=== PATIENT | female | born 1960 | race Caucasian/White ===

== ENCOUNTER 2019-06-26 11:02 | Outpatient (RCR) | payer OTHER, SELFPAY ==
--- NOTE | 2019-06-26 12:13 | PTOPEVAL ---
PHYSICAL THERAPY EVALUATION NOTE Thank you for referring Aicha to [facility]. She was seen this date for positional vertigo. + R Kelsie Halpike was found with testing and corrective R Eply manuever was performed. I will follow up via phone call on 07/01/2019 to see how she is doing. If dizziness has not returned, will d/c her from PT. If the dizziness has returned, will have her continue with skilled PT and formulate a plan of care which I will send to you for review. I agree with and certify that the information above. Referring Physician Date Admitting Provider: Attending Provider: Loki Roach, Referring Provider: *PT Outpatient Evaluation Start: 06/26/19 11:17 Freq: Status: Active Protocol: Document 06/26/19 11:17 GARCÍA (Rec: 06/26/19 12:12 GARCÍA [id number]) Therapy Assessment Status Assessment Status Assessment Status Evaluation Outpatient Past Medical History Neurological History Hx Neurological Disorders No Significant History Cardiovascular History Hx Cardiac Disorders No Significant History Respiratory History Hx Respiratory Disorders No Significant History Gastrointestinal History Hx Gastroesophageal Reflux Disease Yes Genitourinary History Hx Genitourinary Disorders No Significant History Musculoskeletal History Hx Musculoskeletal Disorders No Significant History Endocrine History Hx Endocrine Disorders No Significant History HEENT History Hx Eye Surgery Yes: R eye has lens implanted - 20/50 vision mid May 2019 Reproductive History Hx Reproductive Disorders No Significant History Evaluation Information Problem Diagnosis positional vertigo Onset 05/11/19 Subjective Information Had an episode 8-10 yrs ago - Query Text:As Reported By Patient/ similiar episode - had a head Family scan - all is well. Beginning of May - 2019 Will feel symptoms with quick head movements - gets sense of dizziness, will also have a reaction with the lights, knees feel weak. Saw chiropractor - had accupuncture - no change of symptoms Was doing exercises for arms while lying on back and head hanging off of bed - hanging down. Prior Level of Function Activity Level (Last 3 Months) Hand Dominance Right Medications Home Meds (Include: OTC, RX, Vitamins, GERD medication, 1/2 ambien at [facility], Dose, Route,and Frequency) night, has meclazine - did Query Text:Home Med Entries Will No not take today Longer Recall From Past Visits. Home Meds Mu
--- NOTE | 2019-07-08 13:39 | PCPTNOTE ---
Follow up phone calls made 07/03/19 and 07/08/19. On 07/03/19 - was doing better but occasional symptoms. Reviewed Eply maneuver - suggested that she do it if dizziness returns. On 07/08/19 - no further improvement but having a good day today. Suggested to take decongestant medication for allergies. Also to perform Eply maneuver on as needed basis. Will follow up again next week.
--- NOTE | 2019-07-19 10:17 | PCPTNOTE ---
Follow up phone call made this date. Aicha stated that she was doing better. No follow up phone calls to be made.
== END 2019-07-19 10:47 | disposition home or self-care (01) ==
LOC: ANHHIPT 11:02
PROVIDERS: PCP Internal Medicine; Visit Provider Internal Medicine
DX: H81.10 Benign paroxysmal vertigo, unspecified ear (principal)
CPT/HCPCS: 97161